=== PATIENT | female | born 1955 | race Caucasian/White ===

== ENCOUNTER → 2016-12-25 | Outpatient (CLI) | payer BC ==
[2016-12-25 11:20] LABS: ABSOLUTE EOSINOPHILS # (AUTO) 0.2 10^3/uL (0.0-0.6); ABSOLUTE LYMPHOCYTES (AUTO) 3.1 10^3/uL (0.5-4.7); ABSOLUTE MONOCYTES (AUTO) 0.5 10^3/uL (0.1-1.4); ABSOLUTE NEUT (AUTO) 4.7 10^3/uL (1.7-8.2); BASOPHILS % (AUTO) 0.6 % (0-2); EOSINOPHILS % (AUTO) 1.8 % (0-6); HEMATOCRIT 41.5 % (36.0-47.0); HEMOGLOBIN 13.6 g/dL (12.0-15.5); HGB HCT DIFFERENCE -0.7; LYMPHOCYTES % (AUTO) 36.8 % (13-45); MEAN CORPUSCULAR HEMOGLOBIN 30.4 pg (27.0-33.4); MEAN CORPUSCULAR HGB CONC 32.8 g/dL (32.0-36.0); MEAN CORPUSCULAR VOLUME 93 fl (80-97); MONOCYTES % (AUTO) 5.7 % (3-13); RED BLOOD COUNT 4.48 10^6/uL (3.72-5.28); RED CELL DISTRIBUTION WIDTH 12.8 % (11.5-14.0); SEGMENTED NEUTROPHILS % (AUTO) 55.1 % (42-78); WHITE BLOOD COUNT 8.5 10^3/uL (4.0-10.5)
[2016-12-25 11:32] LABS: ALANINE AMINOTRANSFERASE 28 U/L (9-52); ALBUMIN 4.6 g/dL (3.5-5.0); ALKALINE PHOSPHATASE 69 U/L (38-126); ANION GAP 14 (5-19); ASPARTATE AMINO TRANSFERASE 29 U/L (14-36); BILIRUBIN,TOTAL 0.5 mg/dL (0.2-1.3); BLOOD UREA NITROGEN 11 mg/dL (7-20); CARBON DIOXIDE 28 mmol/L (22-30); CHLORIDE 104 mmol/L (98-107); CREATININE RESULT 0.67 mg/dL (0.52-1.25); Direct HDL 72 mg/dL (>40); GLUCOSE 86 mg/dL (75-110); POTASSIUM 3.8 mmol/L (3.6-5.0); SODIUM 145.6 mmol/L (137-145); TOTAL PROTEIN 7.1 g/dL (6.3-8.2); TRIGLYCERIDES 134 mg/dL (<150)
[2016-12-25 11:44] LABS: DIRECT LDL 69 mg/dL (<100)
== END ==
LOC: OD 10:11
PROVIDERS: ATTEND Internal Medicine
DX: E55.9 Vitamin D deficiency, unspecified (principal); E78.2 Mixed hyperlipidemia; I10 Essential (primary) hypertension; Z79.899 Other long term (current) drug therapy
CPT/HCPCS: 36415; 80053; 80061; 82306; 84443; 85025

== ENCOUNTER → 2017-06-29 | Outpatient (CLI) | payer BC ==
[2017-06-29 12:36] LABS: THYROID STIMULATING HORMONE 5.58 uIU/mL (0.47-4.68)
== END ==
LOC: OD 10:46
PROVIDERS: ATTEND Internal Medicine Endocrinology, Diabetes & Metabolism
DX: E06.3 Autoimmune thyroiditis (principal)
CPT/HCPCS: 36415; 84439; 84443

== ENCOUNTER → 2017-12-25 | Outpatient (CLI) | payer BC ==
[2017-12-25 16:52] LABS: ABSOLUTE EOSINOPHILS # (AUTO) 0.3 10^3/uL (0.0-0.6); ABSOLUTE LYMPHOCYTES (AUTO) 2.2 10^3/uL (0.5-4.7); ABSOLUTE MONOCYTES (AUTO) 0.5 10^3/uL (0.1-1.4); ABSOLUTE NEUT (AUTO) 5.1 10^3/uL (1.7-8.2); BASOPHILS % (AUTO) 0.4 % (0-2); EOSINOPHILS % (AUTO) 3.2 % (0-6); HEMATOCRIT 40.2 % (36.0-47.0); HEMOGLOBIN 13.9 g/dL (12.0-15.5); LYMPHOCYTES % (AUTO) 27.6 % (13-45); MEAN CORPUSCULAR HEMOGLOBIN 31.5 pg (27.0-33.4); MEAN CORPUSCULAR HGB CONC 34.6 g/dL (32.0-36.0); MEAN CORPUSCULAR VOLUME 91 fl (80-97); MONOCYTES % (AUTO) 6.5 % (3-13); PLATELET COUNT 304 10^3/uL (150-450); RED BLOOD COUNT 4.42 10^6/uL (3.72-5.28); RED CELL DISTRIBUTION WIDTH 12.7 % (11.5-14.0); SEGMENTED NEUTROPHILS % (AUTO) 62.3 % (42-78); TOTAL CELLS COUNTED % (AUTO) 100 %; WHITE BLOOD COUNT 8.1 10^3/uL (4.0-10.5)
[2017-12-25 17:02] LABS: ALANINE AMINOTRANSFERASE 35 U/L (9-52); ALBUMIN 4.3 g/dL (3.5-5.0); ALKALINE PHOSPHATASE 66 U/L (38-126); ANION GAP 9 (5-19); ASPARTATE AMINO TRANSFERASE 30 U/L (14-36); BILIRUBIN,DIRECT 0.3 mg/dL (0.0-0.4); BILIRUBIN,TOTAL 0.4 mg/dL (0.2-1.3); BLOOD UREA NITROGEN 13 mg/dL (7-20); CARBON DIOXIDE 29 mmol/L (22-30); CHLORIDE 104 mmol/L (98-107); CHOLESTEROL 170.89 mg/dL (0-200); GLUCOSE 94 mg/dL (75-110); POTASSIUM 3.9 mmol/L (3.6-5.0); SODIUM 141.6 mmol/L (137-145); TOTAL PROTEIN 6.8 g/dL (6.3-8.2); TRIGLYCERIDES 163 mg/dL (<150)
[2017-12-25 17:13] LABS: DIRECT LDL 86 mg/dL (<100)
[2017-12-25 17:21] LABS: VLDL CHOLESTEROL 32.6 mg/dL (10-31)
== END ==
LOC: OD 15:27
PROVIDERS: ATTEND Internal Medicine
DX: E55.9 Vitamin D deficiency, unspecified (principal); E78.2 Mixed hyperlipidemia; I10 Essential (primary) hypertension; E68 Sequelae of hyperalimentation; Z79.899 Other long term (current) drug therapy
CPT/HCPCS: 36415; 80053; 80061; 82306; 84443; 85025

== ENCOUNTER → 2019-01-05 | Outpatient (CLI) | payer BC ==
--- NOTE | 2019-01-05 09:54 | WOMENS IMAGING REPORT ---
EXAM DESCRIPTION: BONE DENSITY HIP/SPINE COMPLETED DATE/TIME: 01/05/2019 9:02 am REASON FOR STUDY: Z78.0 ASYMPTOMATIC MENOPAUSAL STATE Z78.0 ASYMPTOMATIC MENOPAUSAL STATE COMPARISON: 2013 TECHNIQUE: Dual-Energy X-ray Absorptiometry (DEXA) of the AP Spine and Hip. LIMITATIONS: None. FINDINGS: LUMBAR SPINE: The bone mineral density (BMD) measured from L1-L4 in the AP projection correlates with a T-score of 1.4, which is normal as defined by the World Health Organization. This is stable compared to 2013 HIP: The bone mineral density (BMD) measured in the left femoral neck at the hip correlates with a T-score of -1.0, which is osteopenic as defined by the World Health Organization. This represents a 9% decr ease in bone density compared to 2013 IMPRESSION: 1. LUMBAR SPINE: Normal 2. HIP: Osteopenic COMMENT: The World Health Organization defines low BMD as follows: T-score: Normal: Greater than -1.0 Osteopenia: Between -1.0 and -2.5 Osteoporosis: Less than -2.5 without fractures Established osteoporosis: Less than -2.5 with fractures In general, you may wish to consider: Diagnosis Treatment Follow-up DEXA Normal BMD Prevention 2-3 years Osteopenia Prevention/Therapy 1-2 years Osteoporosis Therapy Yearly TECHNICAL DOCUMENTATION: JOB ID: [id number]- All Rights Reserved Reading location - IP/workstation name: [email or web address]
== END ==
LOC: WI 08:14
PROVIDERS: ATTEND Internal Medicine
DX: Z78.0 Asymptomatic menopausal state (principal); M85.88 Other specified disorders of bone density and structure, other site
CPT/HCPCS: 77080

== ENCOUNTER → 2019-07-15 | Outpatient (CLI) | payer BC ==
--- NOTE | 2019-07-15 14:16 | RADIOLOGY REPORT (SQ) ---
EXAM DESCRIPTION: CHEST PA/LATERAL COMPLETED DATE/TIME: 07/15/2019 11:16 am REASON FOR STUDY: COUGH COMPARISON: 09/28/2014 EXAM PARAMETERS: NUMBER OF VIEWS: two views TECHNIQUE: Digital Frontal and Lateral radiographic views of the chest acquired. RADIATION DOSE: NA LIMITATIONS: none FINDINGS: LUNGS AND PLEURA: No opacities, masses or pneumothorax. No pleural effusion. MEDIASTINUM AND HILAR STRUCTURES: No masses or contour abnormalities. HEART AND VASCULAR STRUCTURES: Heart normal size. No evidence for failure. BONES: No acute findings. HARDWARE: None in the chest. OTHER: No other significant finding. IMPRESSION: NO SIGNIFICANT RADIOGRAPHIC FINDING IN THE CHEST. TECHNICAL DOCUMENTATION: JOB ID: [id number] [employer]- All Rights Reserved Reading location - IP/workstation name: [email or web address]
== END ==
LOC: OD 10:54
PROVIDERS: ATTEND Physician Assistant
DX: R05 Cough (principal)
CPT/HCPCS: 71046

== ENCOUNTER 2020-07-12 06:27 | Day surgery (SDC) | payer OTHER, BC ==
[2020-07-09 09:32] LABS: HEMATOCRIT 39.8 % (36.0-47.0); HEMOGLOBIN 13.9 g/dL (12.0-15.5); MEAN CORPUSCULAR HEMOGLOBIN 31.8 pg (27.0-33.4); MEAN CORPUSCULAR VOLUME 91 fl (80-97); PLATELET COUNT 355 10^3/uL (150-450); RED BLOOD COUNT 4.38 10^6/uL (3.72-5.28); RED CELL DISTRIBUTION WIDTH 13.1 % (11.5-14.0); WHITE BLOOD COUNT 9.6 10^3/uL (4.0-10.5)
[~2020-07-12 06:27] MED LIST: LACTATED RINGERS 1000 ML IV PRN; LIDOCAINE 0.5% INJ-PF (5 MG/ML) 50 ML SDV SUBCUT PRN
[2020-07-12] MEDS ORDERED: PROPOFOL INJ 200 MG/20 ML VIAL IV ONE ×2 (07:16→08:20)
[2020-07-12] MEDS ORDERED: LIDOCAINE 2% INJ-PF (20 MG/ML) 10 ML AMPUL ONE (07:17)
--- NOTE | 2020-07-12 08:15 | Discharge Summary ---
Discharge Summary (SDC) - Discharge Final Diagnosis: 1. Rare diverticulosis 2. Internal hemorrhoids 3. left colon polyp Date of Surgery: 07/12/20 Discharge Date: 07/12/20 Condition: Good Treatment or Instructions: [address] [id number] POST ENDOSCOPY DISCHARGE INSTRUCTIONS 1. Diet: Start clear liquids that a regular diet as tolerated. 2. Resume all preoperative medications. All oral anticoagulants and aspirins can be resumed 24 hours after procedure. 3. If a polypectomy was performed some bleeding per rectum may occur. This should stop within 3 days. If not, please contact the office. 4. If you had a colonoscopy you may experience some bloating and delayed return of normal bowel function for several days, your regular bowel movement pattern should resume within a week. 5. Please contact [facility] at to make an appointment with Dr. Ayala for 1 to 3 weeks following procedure. 6. If you have any questions or concerns regarding your care,treatment plan or follow up, please contact our office. 7. Per clinical guidelines we recommend you undergo a repeat colonoscopy in 5-7 years depending upon final path report. Referrals: JUSTUS VARELA PA-C [Primary Care Provider] - Discharge Diet: Regular Discharge Activity: Activity As Tolerated Home Care Assistance: None Needed Report the Following to Your Physician Immediately: Shortness of Breath, Increase in Pain, Fever over 101 Degrees
--- NOTE | 2020-07-12 08:18 | Operative Report ---
Operative Report DATE OF SURGERY: 07/12/20 PREOPERATIVE DIAGNOSIS: 1. Screen for colorectal carcinoma. 2. Sigmoid diver ticulosis POSTOPERATIVE DIAGNOSIS: Same with. 1. No evidence of colorectal carcinoma. 2. Left colon polyp, sessile. 3. Internal hemorrhoids OPERATION: 1. Total colonoscopy to cecum. 2. Cold forceps polypectomy of a left colon polyp SURGEON: IRISH ROTHMAN ANESTHESIA: LMAC TISSUE REMOVED OR ALTERED: Mucosal polyp left colon COMPLICATIONS: None ESTIMATED BLOOD LOSS: Scant INTRAOPERATIVE FINDINGS: See below PROCEDURE: Obtaining informed consent the patient was taken from the preoperative holding area to the main endoscopy suite where monitoring devices were attached to the patient. Plan and surgical timeout were conducted The patient was placed in the left lateral decubitus position with knees to chest. A perianal examination was performed. There was no visible or palpable anorectal pathology. Sphincter tone was felt to be normal. The flexible adult colonoscope was advanced through the anal rectal canal, all the way to the cecum. Visualization of the cecum was achieved by demonstration of the ileocecal valve, the appendiceal orifice and transillumination of the anterior abdominal wall. This was an excellent study on the well-prepped bowel. The colonoscope was withdrawn slowly and methodically checked and the mucosa carefully. There was no evidence of tumor, stricture, bleeding; there were scattered diverticulosis of the sigmoid colon. There is 1 small sessile polyp of the left colon, photographed, and removed with a cold forceps device, and sent as left colon polyp. Bleeding minimal. The scope was slowly withdrawn through the anal rectal canal. Complete visualization of the rectum was achieved with photodocumentation. The scope was withdrawn to the patient's anus. There were internal hemorrhoids, collapsed, not thrombosed. The patient tolerated the procedure well and was taken to the recovery area in stable condition. Per surveillance guidelines, patient will be an appropriate candidate for follow-up colonoscopy in 5-7 years.
[2020-07-12 08:44] VITALS: BP 127/68
== END 2020-07-12 09:15 | disposition home or self-care (01) ==
LOC: END 06:27
PROVIDERS: ATTEND Surgery
DX: Z12.11 Encounter for screening for malignant neoplasm of colon (principal); D12.6 Benign neoplasm of colon, unspecified; K64.8 Other hemorrhoids; K57.30 Diverticulosis of large intestine without perforation or abscess without bleeding; Z88.5 Allergy status to narcotic agent; E07.9 Disorder of thyroid, unspecified; E78.00 Pure hypercholesterolemia, unspecified; I10 Essential (primary) hypertension; R73.03 Prediabetes; Z79.82 Long term (current) use of aspirin; Z79.84 Long term (current) use of oral hypoglycemic drugs; Z79.899 Other long term (current) drug therapy; Z03.818 Encounter for observation for suspected exposure to other biological agents ruled out
CPT/HCPCS: 45380; 36415; 82962; 85027; 87635; 88305 ×2; 00812; J2704; J3490; C9803; 812